=== PATIENT | female | born 1990 ===

== ENCOUNTER 2018-10-21 16:51 | Emergency (ER) | payer BC ==
[~2018-10-21] VITALS: Ht 167.6 cm; Wt 81.0 kg
[2018-10-21 16:54] VITALS: Ht 167.6 cm; Wt 81.0 kg
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
[2018-10-21] MEDS ORDERED: IBUPROFEN 600 MG TAB PO ONE (18:30)
[2018-10-21] MEDS ORDERED: LORAZEPAM 1 MG TAB PO ONE (18:30)
[2018-10-21] MEDS ORDERED: HYDR-4011 PO (20:09)
[2018-10-21] MEDS ORDERED: ACET325T33 PO (20:09)
[2018-10-21 20:15] VITALS: BP 116/75; PULSE 65; RESP 16
== END 2018-10-21 20:20 | disposition home or self-care (01) ==
LOC: FTE 16:51
DX: S05.12XA Contusion of eyeball and orbital tissues, left eye, initial encounter (principal); Y09 Assault by unspecified means
CPT/HCPCS: 70480; 81025; 99284; Z7610